=== PATIENT | female | born 1990 | race Caucasian/White ===

== ENCOUNTER 2021-06-07 17:32 | Emergency (ER) | payer BC, MEDICAID ==
[~2021-06-07] VITALS: Ht 157 cm; Wt 136.0 kg
--- OUTSIDE RECORDS SUMMARY | 2021-06-07 17:38 | XMS REPORT | Clinical Summary ---
Author Author [facility] Organization [facility] Address Unknown Phone Unavailable Care Team Providers Care Steel Fitter Name Role Phone Kamlesh Lawler MD PCP Source Comments Some departments are not documenting in the electronic medical record. If you d o not see the information that you expected, contact Release of Information in [facility] Information Management department at [phone] for further assistan ce in locating additional records.[facility] Allergies Not on File Medications Not on file Active Problems Not on file Social History Date Tobacco Use Types Packs/Day Years Used Never Assessed Sex Assigned at Date Recorded Not on file Last Filed Vital Signs Not on file Plan of Treatment Health Maintenance Due Date Last Done Comments HIV SCREENING 2006 DTAP/TDAP VACCINES ( - 2009 Tdap) HEPATITIS C SCREENING 2009 PHYSICAL (COMPREHENSIVE) 2009 EXAM CERVICAL CANCER SCREENING 02/26/2012 INFLUENZA VACCINE 12/17/2020 Results Not on filefrom Last 3 Months Insurance Type Payer Benefit Subscriber ID Effective Phone Address Plan / Dates Group PPO [facility] [id number] 2014- [phone] [id number] [facility] CARE [facility] [address] [place] [address] [place] [id number] 2014- [phone] [address] MEDICAID Present [id number] [place] [id number] Advance Directives Patient Physical Therapist Technician Explanation Type Date Recorded Advance 10/21/2014 9:56 AM Directive/DPOA Care Teams Start Date End Date Steel Fitter Relationship Specialty 05/23/11 Kamlesh Lawler MD PCP - General [facility] [address]
--- NOTE | 2021-06-07 17:44 | ED General ---
General Stated Complaint: DKA Source of Information: Patient Exam Limitations: No Limitations (SAMANTHA FLETCHER APRN) History of Present Illness Date Seen by Provider: Jun 07, 2021 Time Seen by Provider: 17:42 Initial Comments To [facility] by [facility] from a [facility] here in [place] with concern of diabetic ketoacidosis she is a known insulin-dependent diabetic. However there are several members of the [facility] that are COVID-positive. Staff reports that they noticed some fatigue today. EMS found blood sugar of 390 with ketones. IV was established and fluids were initiated. Timing/Duration: 1-2 Days Severity: Moderate Associated Systoms: Cough, Nausea/Vomiting (SAMANTHA FLETCHER APRN) Allergies and Home Medications Allergies Coded Allergies: No Known Drug Allergies (Unverified , 06/07/21) Patient Home Medication List Home Medication List Reviewed: Yes (SAMANTHA FLETCHER APRN) Review of Systems Review of Systems Constitutional: see HPI EENTM: see HPI Respiratory: no symptoms reported Cardiovascular: no symptoms reported Genitourinary: no symptoms reported Musculoskeletal: no symptoms reported Skin: no symptoms reported Psychiatric/Neurological: No Symptoms Reported Hematologic/Lymphatic: No Symptoms Reported Immunological/Allergic: no symptoms reported (SAMANTHA FLETCHER APRN) Physical Exam Vital Signs Vital Signs - First Documented 06/07/21 06/07/21 17:32 19:08 Temp 37.2 Pulse 73 Resp 18 B/P (MAP) 182/107 (132) Pulse Ox 99 O2 Delivery Room Air (BARNEY MEDELLIN MD) Vital Signs Capillary Refill : (SAMANTHA FLETCHER APRN) Height, Weight, BMI Height: '" Weight: lbs. oz. kg; BMI Method: General Appearance: No Apparent Distress, WD/WN Eyes: Bilateral Eye Normal Inspection, Bilateral Eye PERRL, Bilateral Eye EOMI Neck: Full Range of Motion, Normal Inspection Respiratory: No Accessory Muscle Use, No Respiratory Distress Cardiovascular: Regular Rate, Rhythm, Normal Peripheral Pulses Gastrointestinal: Normal Bowel Sounds, Non Tender, Soft Extremity: Normal Capillary Refill, Normal Inspection, Normal Range of Motion Neurologic/Psychiatric: Alert, Oriented x3, No Motor/Sensory Deficits (SAMANTHA FLETCHER APRN) Progress/Results/Core Measures Suspected Sepsis SIRS Temperature: Pulse: Respiratory Rate: Laboratory Tests 06/07/21 18:21: White Blood Count 10.1 Blood Pressure / Mean: Laboratory Tests 06/07/21 18:21: Creatinine 0.59L, Platelet Count 306, Total Bilirubin 0.2 (SAMANTHA FLETCHER APRN) Results/Orders Lab Results Laboratory Tests Test 06/07/21 17:40 06/07/21 17:42 06/07/21 18:21 Range/Units SARS-CoV-2 RNA (RT-PCR) Not Detected Not Detecte Glucometer 297 H 70-110 MG/DL White Blood Count 10.1 4.3-11.0 10^3/uL Red Blood Count 4.72 3.80-5.11 10^6/uL Hemoglobin 13.6 11.5-16.0 g/dL Hematocrit 43 35-52 % Mean Corpuscular Volume 92 80-99 fL Mean Corpuscular Hemoglobin 29 25-34 pg Mean Corpuscular Hemoglobin Concent 31 L 32-36 g/dL Red Cell Distribution Width 12.8 10.0-14.5 % Platelet Count 306 130-400 10^3/uL Mean Platelet Volume 9.9 9.0-12.2 fL Immature Granulocyte % (Auto) 1 % Neutrophils (%) (Auto) 54 42-75 % Lymphocytes (%) (Auto) 34 12-44 % Monocytes (%) (Auto) 8 0-12 % Eosinophils (%) (Auto) 3 0-10 % Basophils (%) (Auto) 1 0-10 % Neutrophils # (Auto) 5.5 1.8-7.8 10^3/uL Lymphocytes # (Auto) 3.5 1.0-4.0 10^3/uL Monocytes # (Auto) 0.8 0.0-1.0 10^3/uL Eosinophils # (Auto) 0.3 0.0-0.3 10^3/uL Basophils # (Auto) 0.1 0.0-0.1 10^3/uL Immature Granulocyte # (Auto) 0.1 0.0-0.1 10^3/uL Sodium Level 136 135-145 MMOL/L Potassium Level 4.4 3.6-5.0 MMOL/L Chloride Level 100 98-107 MMOL/L Carbon Dioxide Level 30 21-32 MMOL/L Anion Gap 6 5-14 MMOL/L Blood Urea Nitrogen 12 7-18 MG/DL Creatinine 0.59 L 0.60-1.30 MG/DL Estimat Glomerular Filtration Rate 124 BUN/Creatinine Ratio 20 Glucose Level 277 H 70-105 MG/DL Calcium Level 9.0 8.5-10.1 MG/DL Corrected Calcium 9.3 8.5-10.1 MG/DL Total Bilirubin 0.2 0.1-1.0 MG/DL Aspartate Amino Transf (AST/SGOT) 15 5-34 U/L Alanine Aminotransferase (ALT/SGPT) 23 0-55 U/L Alkaline Phosphatase 79 40-136 U/L Total Protein 7.6 6.4-8.2 GM/DL Albumin 3.6 3.2-4.5 GM/DL Lipase 15 8-78 U/L Beta-Hydroxybutyrate (Chem panel) 0.09 0.00-0.27 MMOL/L Serum Test, Qualitative NEGATIVE NEGATIVE (BARNEY MEDELLIN MD) Vital Signs/I&O 06/07/21 06/07/21 17:32 19:08 Temp 37.2 37.0 Pulse 73 86 Resp 18 16 B/P (MAP) 182/107 (132) 157/113 Pulse Ox 99 99 O2 Delivery Room Air 06/08/21 00:00 Intake Total 300 ml Balance 300 ml (BARNEY MEDELLIN MD) Vital Signs/I&O Capillary Refill : (SAMANTHA FLETCHER APRN) Departure Impression Primary Impression: Hyperglycemia Disposition: 01 HOME, SELF-CARE Condition: Stable Departure-Patient Inst. Decision time for Depature: 18:58 (SAMANTHA FLETCHER APRN) Referrals: UNKNOWN (PCP/Family) Primary Care Physician Patient Instructions: NO INSTRUCTIONS GIVEN Add. Discharge Instructions: 1. Return to ER for any concerns ATTENDING PHYSICIAN NOTE: I was physically present as attending physician in the emergency department during the care of this patient, but I was not directly involved in the decision making or delivery of care for this patient. (BARNEY MEDELLIN MD) SAMANTHA FLETCHER APRN Jun 07, 2021 17:44 BARNEY MEDELLIN MD Jun 08, 2021 03:25
[2021-06-07 18:26] LABS: BASOPHILS # (AUTO) 0.1 10^3/uL (0.0-0.1); BASOPHILS % (AUTO) 1 % (0-10); EOSINOPHILS # (AUTO) 0.3 10^3/uL (0.0-0.3); EOSINOPHILS % (AUTO) 3 % (0-10); HEMATOCRIT 43 % (35-52); HEMOGLOBIN 13.6 g/dL (11.5-16.0); LYMPHOCYTES # (AUTO) 3.5 10^3/uL (1.0-4.0); LYMPHOCYTES % (AUTO) 34 % (12-44); MEAN CORPUSCULAR HEMOGLOBIN 29 pg (25-34); MEAN CORPUSCULAR HGB CONC 31 g/dL (32-36); MEAN CORPUSCULAR VOLUME 92 fL (80-99); MEAN PLATELET VOLUME 9.9 fL (9.0-12.2); MONOCYTES # (AUTO) 0.8 10^3/uL (0.0-1.0); MONOCYTES % (AUTO) 8 % (0-12); NEUTROPHILS # (AUTO) 5.5 10^3/uL (1.8-7.8); NEUTROPHILS % (AUTO) 54 % (42-75); PLATELET COUNT 306 10^3/uL (130-400); WHITE BLOOD COUNT 10.1 10^3/uL (4.3-11.0)
[2021-06-07] MEDS ORDERED: LACTATED RINGERS 1,000 ML IV SCH ×2 (18:30→19:00)
[2021-06-07 18:49] LABS: ALBUMIN 3.6 GM/DL (3.2-4.5)
[2021-06-07 18:50] LABS: POTASSIUM 4.4 MMOL/L (3.6-5.0)
[2021-06-07 18:52] LABS: TOTAL PROTEIN 7.6 GM/DL (6.4-8.2)
[2021-06-07 18:54] LABS: BILIRUBIN,TOTAL 0.2 MG/DL (0.1-1.0)
[2021-06-07 18:56] LABS: CREATININE SERUM 0.59 MG/DL (0.60-1.30)
[2021-06-07 19:08] VITALS: BP 157/113
== END 2021-06-07 19:08 | disposition home or self-care (01) ==
LOC: EDUNIT# 17:32 → ER 17:34
DX: E11.65 Type 2 diabetes mellitus with hyperglycemia (principal); Z32.02 Encounter for pregnancy test, result negative; Z20.822 Contact with and (suspected) exposure to COVID-19
CPT/HCPCS: 36415; 80053; 82010; 82947; 83690; 84703; 85025; 87636